=== PATIENT | male | born 1980 | race Caucasian/White ===

== ENCOUNTER 2022-01-29 22:30 | Inpatient (IN) | payer OTHER ==
[~2022-01-29] VITALS: Ht 160 cm; Wt 82.2 kg
[2022-01-29] MEDS ORDERED: IOHEXOL-350 100 ML BOTTLE ONE (23:18)
[2022-01-29 23:19] LABS: BASOPHILS % 0.2 % (0.0-2.0); EOSINOPHILS % 2.9 % (0.0-5.0); HEMATOCRIT. 25.5 % (42.0-52.0); HEMOGLOBIN. 8.8 g/dL (14.0-18.0); LYMPHOCYTES % 36.5 % (20.0-50.0); MEAN CORPUSCULAR HEMOGLOBIN 31.2 pg (28.0-32.0); MEAN PLATELET VOLUME 8.9 fl (7.4-10.4); MONOCYTES % 8.4 % (2.0-8.0); PLATELET 174 x1000/uL (130-400); RED BLOOD CELL COUNT 2.83 mill/uL (4.7-6.1); RED CELL DISTRIBUTION WIDTH 14.3 % (11.6-14.6)
[2022-01-29 23:29] LABS: PROTHROMBIN TIME 11.1 sec (9.6-11.0)
[2022-01-29 23:30] LABS: CHLORIDE 108 mEq/L (98-107)
[2022-01-29 23:37] LABS: ETHANOL BLOOD < 10 mg/dL
[2022-01-29 23:40] LABS: LDL CHOLESTEROL 51 mg/dL (5-100)
[2022-01-30] MEDS ORDERED: DIPHENHYDRAMINE 50MG/ML VIAL IV NR (00:15)
[2022-01-30] MEDS ORDERED: PROCHLORPERAZINE MALEATE 10MG TABLET PO NR (00:15)
[2022-01-30] MEDS ORDERED: KETOROLAC 15MG/ML VIAL IV NR (00:15)
[2022-01-30] MEDS ORDERED: ASPIRIN 325MG EC TABLET PO NR (00:15)
[2022-01-30 01:07] LABS: CLARITY URINE CLEAR (CLEAR); COLOR URINE YELLOW (YELLOW); KETONES URINE NEGATIVE (NEGATIVE); LEUKOCYTE ESTERASE URINE NEGATIVE (NEGATIVE); NITRITE URINE NEGATIVE (NEGATIVE); OCCULT BLOOD URINE TRACE (NEGATIVE); PROTEIN URINE 2+ (NEGATIVE); SPECIFIC GRAVITY URINE 1.035 (1.005-1.030); UROBILINOGEN URINE 0.2 E.U./dL (0.2-1.0)
[2022-01-30 01:17] LABS: *AMPHETAMINES SCREEN URINE NEGATIVE (NEGATIVE); *BARBITURATES SCREEN URINE NEGATIVE (NEGATIVE); *BENZODIAZEPINES SCREEN URINE NEGATIVE (NEGATIVE); *COCAINE SCREEN URINE NEGATIVE (NEGATIVE)
[2022-01-30 01:18] LABS: CANNABINOID URINE SCREEN NEGATIVE (NEGATIVE); METHADONE URINE SCREEN NEGATIVE (NEGATIVE); OPIATES URINE SCREEN NEGATIVE (NEGATIVE); PHENCYCLIDINE URINE SCREEN NEGATIVE (NEGATIVE)
[2022-01-30 08:00] VITALS: BP 146/81
[2022-01-30] MEDS ORDERED: ATOR-2 MT (09:12)
[2022-01-30] MEDS ORDERED: GABA-532 MT (09:12)
[2022-01-30] MEDS ORDERED: METF-416 MT (09:12)
[2022-01-30] MEDS ORDERED: METO37.5 MT (09:12)
[2022-01-30] MEDS ORDERED: LOSA1TAB34 MT (09:12)
[2022-01-30] MEDS ORDERED: EMPA25TA MT (09:12)
[2022-01-30] MEDS ORDERED: APIX5TAB MT (09:12)
[2022-01-30] MEDS ORDERED: DEXTROSE 50% WATER 50ML SYRINGE IV PRN (09:15)
[2022-01-30] MEDS ORDERED: ONDANSETRON HCL 4MG/2ML INJ IV PRN (09:15)
[2022-01-30] MEDS ORDERED: ACETAMINOPHEN 325MG TABLET PO PRN (09:15)
[2022-01-30 10:02] VITALS: BP 146/81
[2022-01-30] MEDS ORDERED: ENOXAPARIN 30MG/0.3ML SYR SUBCUT SCH ×2 (10:15→11:30)
[2022-01-30] MEDS ORDERED: NON FORMULARY PATIENT HOME MED XX SCH (11:15)
[2022-01-30] MEDS: BLOOD SUGAR DIAGNOSTIC STRIP TEST SCH ×3 (11:39→20:55)
[2022-01-30] MEDS: METOPROLOL TARTRATE 25MG TABLET PO SCH ×2 (11:39→20:58)
[2022-01-30] MEDS: LOSARTAN POTASSIUM 50 MG TABLET PO SCH (11:39)
[2022-01-30 11:43] VITALS: BP 152/84
[2022-01-30] MEDS: INSULIN LISPRO 100 UNITS/ML SUBCUT SCH ×3 (11:44→20:55)
[2022-01-30] MEDS: GABAPENTIN 300MG CAPSULE PO SCH ×2 (13:29→21:59)
[2022-01-30] MEDS: HYDROCHLOROTHIAZIDE 12.5MG CAPSULE PO SCH (13:29)
[2022-01-30 16:00] VITALS: BP 129/76
[2022-01-30] MEDS: APIXABAN 5 MG TABLET PO SCH (16:22)
[2022-01-30] MEDS: METFORMIN HCL 500MG TABLET PO SCH (17:30)
[2022-01-30 20:00] VITALS: BP 120/82
[2022-01-30] MEDS ORDERED: ATORVASTATIN CALCIUM 40MG TABLET PO SCH (21:00)
[2022-01-31] VITALS: BP 133/89
[2022-01-31 04:00] VITALS: BP 108/76
[2022-01-31] MEDS: GABAPENTIN 300MG CAPSULE PO SCH (06:18)
[2022-01-31] MEDS: INSULIN LISPRO 100 UNITS/ML SUBCUT SCH (06:19)
[2022-01-31] MEDS: BLOOD SUGAR DIAGNOSTIC STRIP TEST SCH (06:19)
[2022-01-31 08:00] VITALS: BP 107/62
[2022-01-31] MEDS: HYDROCHLOROTHIAZIDE 12.5MG CAPSULE PO SCH (09:00)
[2022-01-31] MEDS ORDERED: ASPIRIN 81MG TABLET PO SCH (09:00)
[2022-01-31] MEDS: LOSARTAN POTASSIUM 50 MG TABLET PO SCH (09:00)
[2022-01-31] MEDS: METOPROLOL TARTRATE 25MG TABLET PO SCH (09:00)
[2022-01-31] MEDS: METFORMIN HCL 500MG TABLET PO SCH (09:43)
[2022-01-31] MEDS: APIXABAN 5 MG TABLET PO SCH (09:43)
[2022-01-31 10:27] VITALS: BP 107/62
== END 2022-01-31 11:10 | disposition home or self-care (01) | DRG 64 ==
LOC: ER 22:30 → MICUSO 01-30 01:07 → EDBEDREQ 01-30 01:11 → EDBEDREQTM 01-30 01:11 → EDBEDREQSVC 01-30 01:11 → 8WST 01-30 08:40
PROVIDERS: ADMIT Internal Medicine; ATTEND Internal Medicine
DX: I63.9 Cerebral infarction, unspecified (principal); E43 Unspecified severe protein-calorie malnutrition; N17.0 Acute kidney failure with tubular necrosis; D64.9 Anemia, unspecified; E87.8 Other disorders of electrolyte and fluid balance, not elsewhere classified; E11.65 Type 2 diabetes mellitus with hyperglycemia; Z20.822 Contact with and (suspected) exposure to COVID-19; I10 Essential (primary) hypertension; I48.91 Unspecified atrial fibrillation; E66.9 Obesity, unspecified; Z68.32 Body mass index [BMI] 32.0-32.9, adult; Z79.01 Long term (current) use of anticoagulants; Z79.84 Long term (current) use of oral hypoglycemic drugs; Z79.899 Other long term (current) drug therapy
CPT/HCPCS: 36415; 70496; 70498; 70551; 71045; 80053; 80305; 80320; 81003; 82962; 83721; 83880; 84484; 85025; 86850; 86900; 87426; 93005; 99291; J1200; J1885; Q0164; Q9967; G0480